=== PATIENT | female | born 1995 | race Caucasian/White ===

== ENCOUNTER 2024-01-24 05:38 | Inpatient (IN) | payer OTHER ==
[2024-01-24] MEDS ORDERED: MAGNESIUM HYDROXIDE/AL HYDROX 30 ML CUP PO PRN ×2 (06:45→23:45)
[2024-01-24] MEDS ORDERED: LACTATED RINGER'S 1,000 ML IV SCH (06:45)
[2024-01-24] MEDS ORDERED: LACTATED RINGER'S 1,000 ML IV PRN (06:45)
[2024-01-24] MEDS ORDERED: OXYTOCIN/DEXTROSE 5% 20 UNITS/100 ML BAG IV SCH (06:45)
[2024-01-24] MEDS ORDERED: CALCIUM CARBONATE 500 MG CHEW PO PRN ×2 (06:45→23:45)
[2024-01-24 06:55] LABS: HEMATOCRIT 29.4 % (35.0-50.0); HEMOGLOBIN 10.1 g/dL (12.0-18.0); MCH 28.1 (27-36); MCHC 34.5 g/dl (30-36); MCV 81.5 fl (81-99); RBC 3.61 M/ul (4.3-5.7); RDW 13.9 (10.5-15.0)
[2024-01-24 07:15] LABS: AMPHETAMINES, URINE NEGATIVE (NEGATIVE); BARBITURATES, URINE NEGATIVE (NEGATIVE); BENZODIAZEPINE, URINE NEGATIVE (NEGATIVE); BUPRENORPHINE, URINE POSITIVE (NEGATIVE); CANNABINOID, URINE NEGATIVE (NEGATIVE); COCAINE, URINE NEGATIVE (NEGATIVE); ECSTASY, URINE NEGATIVE (NEGATIVE); FENTANYL, URINE NEGATIVE (NEGATIVE); METHADONE, URINE NEGATIVE (NEGATIVE); OPIATES, URINE NEGATIVE (NEGATIVE); OXYCODONE, URINE NEGATIVE (NEGATIVE); PHENCYCLIDINE, URINE NEGATIVE (NEGATIVE)
[2024-01-24 07:39] LABS: ABO B; ANTIBODY SCREEN NEGATIVE; RH POSITIVE
[2024-01-24] MEDS ORDERED: OXYTOCIN/0.9 % SODIUM CHLORIDE 500 ML IV SCH ×2 (08:00→23:45)
[2024-01-24] MEDS ORDERED: buprenorphine HCL 8 MG TAB.SUBL SL SCH (13:00)
[2024-01-24] MEDS ORDERED: buprenorphine HCL 2 MG TAB.SUBL SL SCH ×2 (18:00→19:00)
[2024-01-24] MEDS ORDERED: fentaNYL citrate 100 MCG/2 ML VIAL ONE (18:09)
[2024-01-24] MEDS ORDERED: ROPIVACAINE 0.2% 200 ML BAG ONE (18:09)
[2024-01-24] MEDS ORDERED: ePHEDrine sulfate 5 MG/ML SYRINGE IV PRN (19:00)
[2024-01-24] MEDS ORDERED: LACTATED RINGER'S 2,000 ML IV ONE (19:00)
[2024-01-24] MEDS ORDERED: ROPIVACAINE 0.2% 200 ML BAG EPIDURAL SCH (19:00)
[2024-01-24] MEDS ORDERED: LACTATED RINGER'S 500 ML IV PRN (19:00)
[2024-01-24] MEDS ORDERED: SERTRALINE HCL 100 MG TAB PO SCH (21:00)
[2024-01-24] MEDS ORDERED: PANTOPRAZOLE SODIUM 40 MG TABEC PO SCH (21:00)
[2024-01-24] MEDS ORDERED: fentaNYL citrate 250 MCG/5 ML VIAL ONE (21:23)
[2024-01-24] MEDS ORDERED: TRANEXAMIC ACID IN NACL,ISO-OS 100 ML IV ONE (23:06)
[2024-01-24] MEDS ORDERED: TRANEXAMIC ACID IN NACL,ISO-OS 1,000 MG/100 ML PIGGYBACK IV ONE (23:10)
[2024-01-24] MEDS ORDERED: ACETAMINOPHEN 325 MG TAB PO PRN (23:45)
[2024-01-24] MEDS ORDERED: HYDROCORTISONE ACETATE 25 MG SUPP PR PRN (23:45)
[2024-01-24] MEDS ORDERED: OXYCODONE/APAP 5/325 TAB PO PRN (23:45)
[2024-01-24] MEDS ORDERED: BENZOCAINE 60 ML AEROSOL TOP PRN (23:45)
[2024-01-24] MEDS ORDERED: HYDROCODONE/ACETA 5/325 TAB PO PRN (23:45)
[2024-01-24] MEDS ORDERED: MAGNESIUM HYDROXIDE 30 ML UDC PO PRN (23:45)
[2024-01-24] MEDS ORDERED: WITCH HAZEL/GLYCERIN 1 EA PAD TOP PRN (23:45)
[2024-01-24] MEDS ORDERED: IBUPROFEN 600 MG TAB PO PRN (23:45)
[2024-01-24] MEDS ORDERED: OXYCODONE HCL 5 MG TAB PO PRN (23:45)
[2024-01-25 06:17] LABS: HEMATOCRIT 31.6 % (35.0-50.0); HEMOGLOBIN 10.7 g/dL (12.0-18.0); MCV 82.3 fl (81-99); RBC 3.84 M/ul (4.3-5.7); RDW 14.2 (10.5-15.0)
[2024-01-25] MEDS ORDERED: FERROUS SULFATE 325 MG TAB PO SCH (08:00)
[2024-01-25] MEDS ORDERED: SENNOSIDES/DOCUSATE 1 EA TAB PO SCH (09:00)
[2024-01-25 21:30] LABS: TSH RECEPTOR ANTIBODY <1.10 IU/L (<=1.75)
== END 2024-01-26 12:45 | disposition home or self-care (01) | DRG 806 ==
LOC: FBCO → FBC 06:10 → FBCO 02-12 08:23
PROVIDERS: ADMIT Obstetrics & Gynecology; ATTEND Obstetrics & Gynecology
PROC: 10E0XZZ Delivery of Products of Conception, External Approach (ICD-10-PCS; principal; 2024-01-24)
PROC: 3E0R3BZ Introduction of Anesthetic Agent into Spinal Canal, Percutaneous Approach (ICD-10-PCS; 2024-01-24)
PROC: 00HU33Z Insertion of Infusion Device into Spinal Canal, Percutaneous Approach (ICD-10-PCS; 2024-01-24)
PROC: 0HQ9XZZ Repair Perineum Skin, External Approach (ICD-10-PCS; 2024-01-24)
DX: O36.5930 Maternal care for other known or suspected poor fetal growth, third trimester, not applicable or unspecified (principal); O99.324 Drug use complicating childbirth; Z37.0 Single live birth; Z3A.37 37 weeks gestation of pregnancy; O99.214 Obesity complicating childbirth; E66.01 Morbid (severe) obesity due to excess calories; Z98.84 Bariatric surgery status; O69.81X0 Labor and delivery complicated by cord around neck, without compression, not applicable or unspecified; O70.0 First degree perineal laceration during delivery; O99.334 Smoking (tobacco) complicating childbirth; F17.210 Nicotine dependence, cigarettes, uncomplicated; F12.90 Cannabis use, unspecified, uncomplicated
CPT/HCPCS: 01960; 36415; 80307; 85027; 86850; 86900; 86901; A9270; J2590; J2795; J3010; J7121